=== PATIENT | male | born 1990 | race Caucasian/White ===

== ENCOUNTER 2022-03-19 17:16 | Emergency (ER) | payer SELFPAY ==
--- OUTSIDE RECORDS SUMMARY | 2022-03-19 17:20 | XMS REPORT | Continuity of Care Document ---
:1990 Author Organization [facility] t Address [address] [place] [address] Care Team Providers Name Role Phone Asked, No Pcp Primary Care Physician Unavailable AMBER DAVISON Attending Clinician Unavailable Yu Collazo Attending Clinician YU SALAS Attending Clinician Unavailable MAC ALFONSO Attending Clinician Unavailable Problems Condition Condition Condition Status Onset Resolution Last Treating Co mments Source Name Details Category Date Date Treatment Clinician Date No known No known Disease Unive rs active active ity of problems problems [facility] Allergies, Adverse Reactions, Alerts Allergy Allergy Status Severity Reaction(s) Onset Inactive Treating Comm ents Source Name Type Date Date Clinician NO KNOWN Drug Active Univers ALLERGIE Class ity of [facility] Family History Family Member Diagnosis Comments Start Date Stop Date Source Family member [facility] Social History Social Habit Start Date Stop Date Quantity Comments Source Exposure to Not sure University of SARS-CoV-2 [facility] (event) Branch History of Smokes tobacco [facility] tobacco use daily Alcohol intake 2020-12-10 2020-12-10 Current drinker [facility] 00:00:00 00:00:00 of alcohol (finding) Tobacco use and 2019-07-24 2019-07-24 Smokeless tobacco [facility] exposure 00:00:00 00:00:00 non-user Sex Ass[birth year] At [birth year] [facility] 00:00:00 00:00:00 Smoking Status Start Date Stop Date Source Unknown if ever smoked [facility] Branch Smokes tobacco daily 2019-07-24 00:00:00 [facility] Medications Ordered Filled Start Stop Current Ordering Indication Dosage Frequency Signature Comments Components Source Medication Medication Date Date Medication? Clinician (SIG) Name Name No known No No known Metho di medications 5-[address] 10:40: s [facility] l KCL 2019-07- No 40meq 40 mEq, Univers (KLOR-CON 08-31 Oral, ity of M20) tablet 03:00[place] 02[place]07 [place] 00 :00 dose, Fri Medical 06/29/20 Branch at 2100, JOSEFINA clindamycin 2019-07- No 600mg 600 mg, IV Univers (CLEOCIN) 08-31 Piggyback, ity of injection 02:15: 01:50 [place] 600 mg [place] :00 dose, Fri Medical 06/29/20 Branch at 2014, JOSEFINA
Re ason for Anti-Infec tive: Documented Infection< br>Documen josy Infection Site: HEENT
D uration of Therapy: 10 days
Restricte d use approved by: ADC PROVIDER acetaminoph 2019-07- No 650mg 650 mg, U nivers en 08-31 Oral, ity of (TYLENOL) 02:15: 01:25 [place] tablet 650 00 :00 dose, Fri Medi braulio mg 06/29/20 Branch at 2014, JOSEFINA HYDROcodone 2019-07- No 1{tbl} 1 tablet, Univers -acetaminop 08-31 Oral, ity of hen (NORCO) 02:15: 01:27 [place] 10-325 mg 00 :00 dose, Fri Medic al tablet 1 06/29/20 Branch tablet at 2014, Routine NaCl 0.9% 2019-07 2020- No 1000mL at 999 Uni vers (NS) bolus 08-31 mL/hr, ity of infusion 02:15: 03:02 1,000 mL, James as 1,000 mL 00 :00 IV Medical Infusion, Branch ONCE, 1 dose, 06/29/20 at 2015, STAT traMADoL 50 2019-07 Yes [id number] 50mg Take 1 Univ ers mg tablet 2-18 tablet by ity o f 00:00: mouth [place] 00 every 6 Medical (six) Branch hours as needed for Pain (scale 4-6). Indication s: acute pain clindamycin 2019-07 2020- No [id number] 450mg Take 3 Univers 150 mg 2-18 - capsules ity of capsule 00:00: 05:59 by mouth 3 [place] as 00 :00 (three) Medical times Branch daily for 10 days. Vital Signs Vital Name Observation Time Observation Value Comments Source Systolic blood 2020-06-30 02:30:00 156 [facility]Hg[facility] 2020-06-30 02:30:00 85 mm[facility]Hg[facility] Heart rate 2020-06-30 02:30:00 115 /min [facility] Body temperature 2020-06-30 02:30:00 37.5 Claudai [facility] Respiratory rate 2020-06-30 02:30:00 18 /min [facility] Oxygen saturation in 2020-06-30 02:30:00 99 /min [facility] Arterial blood by [facility] Pulse oximetry [place] Body height 2020-06-30 00:48:00 182.9 cm [facility] Body weight 2020-06-30 00:48:00 104.327 kg [facility] BMI 2020-06-30 00:48:00 31.19 kg/m2 [facility] Procedures Procedure Date / Time Performed Performing Clinician Sour e BASIC METABOLIC PANEL 2020-06-30 01:17:00 Yu Salas [facility] (NA, K, CL, CO2, [facility] GLUCOSE, BUN, CREATININE, CA) CBC WITH DIFF 2020-06-30 01:17:00 Yu Salas [facility] CONSENT/REFUSAL FOR 2020-06-30 00:43:20 [facility] AND Name [facility] TREATMENT NOTICE OF PRIVACY 2020-06-30 00:41:40 Doctor Unassigned, [facility] Plan of Care Planned Activity Planned Date Details Comments Source Future Scheduled 2022-03-12 HEPATITIS B VACCINES [facility] Test 01:09:39 (1 of 3 - 3-dose series) [code = HEPATITIS B VACCINES (1 of 3 - 3-dose series)] Future Scheduled 2022-03-12 COVID-19 VACCINE (#1) [facility] Test 01:09:39 [code = COVID-19 VACCINE (#1)] Future Scheduled 2022-03-12 Pneumococcal Vaccine: [facility] Test 01:09:39 Pediatrics (0 to 5 Years) and At-Risk Patients (6 to 64 Years) (1 - PCV) [code = Pneumococcal Vaccine: Pediatrics (0 to 5 Years) and At-Risk Patients (6 to 64 Years) (1 - PCV)] Future Scheduled 2022-03-12 Hepatitis C screening [facility] Test 01:09:39 (procedure) [code = 961081024] Future Scheduled 2022-03-12 INFLUENZA VACCINE [facility] Test 01:09:39 [code = INFLUENZA VACCINE] Encounters Start End Encounter Admission Attending Care Care Encounter Source Date/Time Date/Time Type Type Clinicians Facility Department ID 2020-12-10 2020-12-10 Emergency DAVISON, [place] [id number] [place] [address] 00:00:00 00:00:00 AMBER [address] 2020-06-29 2020-06-29 [id number] Univers 18:52:00 21:05:00 Yu Nicolas [place] [id number] [facility] [id number] [facility] [id number] [address] 2020-06-29 2020-06-29 Emergency [facility] [id number] Univers 18:52:00 18:52:00 YU keane [facility] 2019-07-24 2019-07-25 [facility] [place] [id number] [place] 00:00:00 00:00:00 MAC [address] Results Test Description Test Time Test Comments Results Result Comments Source BASIC METABOLIC PANEL (NA, K, CL, CO2, GLUCOSE, BUN, 2020-06 01:55:00 CREATININE, CA) Test Item Value Reference Range Interpretation Comme nts NA (test code = 7749498424) 136 mmol/L 135-145 K (test code = 6267934635) 3.0 mmol/L 3.5-5 L CL (test code = 9142892986) 100 mmol/L 98-108 CO2 TOTAL (test code = 1183347560) 26 mmol/L 23-31 AGAP (test code = 1839790379) 2-16 BUN (test code = 6588327637) 11 mg/dL 7-23 GLUCOSE (test code = 3448953666) 184 mg/dL 70-110 H CREATININE (test code = 0.73 mg/dL 0.6-1.25 2209395047) CALCIUM (test code = 5968580993) 9.4 mg/dL 8.6-10.6 eGFR Calculation (Non- mL/min/1.73m2 [place]) (test code = 2620603919) eGFR Calculation ( mL/min/1.73m2 [place]) (test code = 8550711081) LUIS E (test code = LUIS E) Association of Glomerular Filtration Rate (GFR) and Staging of Kidney Disease* + +-------- + ------+| GFR (mL/min/1.73 m2) ?| With Kidney Damage ?| ?Without Kidney Damage+ +-- + +| ?>90 ?| ?Stage one ?| ? Normal ?+ +------- + -------+| ?60-89 ?| ?Stage two ?| ? Decreased GFR ? + +-------- + ------+| ?30-59 ?| ?Stage three ?| ? Stage three ? + +-------- + ------+| ?15-29 ?| ?Stage four ? | ? Stage four ?+ +------- + -------+| ?<15 (or dialysis) ? ?| ?Stage five ? | ? Stage five ?+ +------- + -------+ *Each stage assumes the associated GFR level has been in effect for at least three months. ?Stages 1 to 5, with or without kidney disease, indicate chronic kidney disease. Notes: Determination of stages one and two (with eGFR >59mL/min/1.73 m2) requires estimation of kidney damage for at least three months as defined by structural or functional abnormalities of the kidney, manifested by either:Pathological abnormalities or Markers of kidney damage (including abnormalities in the composition of the blood or urine or abnormalities in imaging tests). Lab Interpretation (test code = Abnormal 37724-3) [facility] WITH [id number] 01:45:00 Test Item Value Reference Range Interpretation Comments WBC (test code = See_Comment H [Automated 6690-2) message] The system which generated this result transmit josy reference range : 4.20 - 10.70 10*3/?L. The reference range was not used to interpret this result as normal/abnormal . RBC (test code = See_Comment L [Automated 789-8) message] The system which generated this result transmit josy reference range : 4.26 - 5.52 10*6/?L. The reference range was not used to interpret this result as normal/abnormal . HGB (test code = 13.5 g/dL 12.2-16.4 718-7) HCT (test code = 36.9 % 38.4-49.3 L 4544-3) MCV (test code = 87.2 fL 81.7-95.6 787-2) MCH (test code = 31.9 pg 26.1-32.7 785-6) MCHC (test code = 36.6 g/dL 31.2-35 H 786-4) RDW-SD (test code = 38.4 fL 38.5-51.6 L 34726-0) RDW-CV (test code = 12.0 % 12.1-15.4 L 788-0) PLT (test code = See_Comment [Automated 777-3) message] The system which generated this result transmit josy reference range : 150 - 328 10*3/ ?L. The reference range was not u sed to interpret th is result as normal/abnormal . MPV (test code = 10.5 fL 9.8-13 68302-2) NRBC/100 WBC (test See_Comment [Automat ed code = 6025166611) message] The system which generated this result transmit josy reference range : 0.0 - 10.0 /100 WBCs. The reference range was not used to interpret this result as normal/abnormal . NRBC x10^3 (test code <0.01 See_Comment [Auto mated = 9009746466) message] The system which generated this result transmit josy reference range : 10*3/?L. The reference range was not used to interpret this result as normal/abnormal . GRAN MAT (NEUT) % 82.8 % (test code = 770-8) IMM GRAN % (test code 0.40 % = 6485421873) LYMPH % (test code = 7.8 % 736-9) MONO % (test code = 8.9 % 5905-5) EOS % (test code = 0.0 % 713-8) BASO % (test code = 0.1 % 706-2) GRAN MAT x10^3(ANC) 11.09 10*3/uL 1.99-6.95 H (test code = 4149971738) IMM GRAN x10^3 (test 0.05 10*3/uL 0-0.06 code = 0590595936) LYMPH x10^3 (test code 1.04 10*3/uL 1.09-3.23 L = 731-0) MONO x10^3 (test code 1.19 10*3/uL 0.36-1.02 H = 742-7) EOS x10^3 (test code = <0.03 0.06-0.53 L 711-2) BASO x10^3 (test code <0.03 0.01-0.09 = 704-7) Lab Interpretation Abnormal (test code = 43403-4) [facility]"
--- NOTE | 2022-03-19 18:24 | EDPHYS ---
Physician Documentation [facility] Name: Kan Brown Age: 31 yrs Sex: Male : 1990 Arrival Date: 03/19/2022 Time: 17:17 Bed Waiting Private MD: ED Physician Rudi Medina HPI: 03/19 18:29 This 31 yrs old Male presents to ER via Ambulatory with complaints of Right side facial pm1 pain. 18:29 Onset: The symptoms/episode began/occurred 3 day(s) ago. pm1 18:29 The patient presents with pain. The problem is located in the right jaw. Duration: The pm1 symptoms are continuous. Modifying factors: The symptoms are alleviated by nothing, the symptoms are aggravated by nothing. Associated signs and symptoms: Pertinent positives: Ear pain, headache, Pertinent negatives: fever, inability to eat, swelling, vomiting. Severity of symptoms: in the emergency department the symptoms are unchanged. The patient has not experienced similar symptoms in the past. The patient has not recently seen a physician. Historical: - Allergies: 18:24 No Known Allergies; kb3 - Home Meds: 18:24 None [Active]; kb3 - PMHx: 18:24 None; kb3 - PSHx: 18:24 None; kb3 - Immunization history:: Adult Immunizations up to date, Client reports having NOT received the Covid vaccine. Last tetanus immunization: unknown. - Social history:: Smoking status: Patient reports the use of cigarette tobacco products, smokes one pack cigarettes per day. ROS: 18:29 Constitutional: Negative for fever, chills, and weight loss. pm1 18:29 Cardiovascular: Negative for chest pain, palpitations, and edema, Respiratory: Negative for shortness of breath, cough, wheezing, and pleuritic chest pain, Abdomen/GI: Negative for abdominal pain, nausea, vomiting, diarrhea, and constipation, MS/Extremity: Negative for injury and deformity, Skin: Negative for injury, rash, and discoloration. 18:29 ENT: Positive for dental pain, ear pain, Negative for drainage from ear(s). 18:29 Neuro: Positive for headache. 18:29 All other systems are negative. Exam: 18:29 Constitutional: This is a well developed, well nourished patient who is awake, alert, pm1 and in no acute distress. Head/Face: Normocephalic, atraumatic. 18:29 Skin: Warm, dry with normal turgor. Normal color with no rashes, no lesions, and no evidence of cellulitis. MS/ Extremity: Pulses equal, no cyanosis. Neurovascular intact. Full, normal range of motion. 18:29 Eyes: Exam is negative for acute changes, Periorbital structures: appear normal, Pupils: no acute changes, Extraocular movements: no acute changes, Conjunctiva: no acute changes, no injection. 18:29 ENT: External ear(s): are unremarkable, Ear canal(s): are normal, TM's: are normal, Mouth: Lips: normal, moist, Oral mucosa: normal, pink and intact, moist, Gums: normal with healthy appearance, Dental exam: dental caries, that is moderate, specifically in the upper right first molar (#3), lower right first molar (#30) and lower right second molar (#31), gum swelling, not appreciated. 18:29 Cardiovascular: Exam negative for acute changes, Rate: normal, Rhythm: regular, Pulses: no pulse deficits are appreciated. 18:29 Respiratory: Exam negative for acute changes, respiratory distress, shortness of breath. 18:29 Neuro: Exam negative for acute changes, Orientation: is normal, Mentation: is normal, Motor: is normal, moves all fours. Vital Signs: 18:21 BP 150 / 87; Pulse 70; Resp 20; Temp 98.8; Pulse Ox 100% ; Weight 107.5 kg; Height 6 kb3 ft. 0 in. (182.88 cm); Pain 10/10; 18:21 Body Mass Index 32.14 (107.50 kg, 182.88 cm) kb3 MDM: 18:22 Counseling: I had a detailed discussion with the patient and/or guardian regarding: the pm1 historical points, exam findings, and any diagnostic results supporting the discharge/admit diagnosis, the need for outpatient follow up, for definitive care, a dentist, to return to the emergency department if symptoms worsen or persist or if there are any questions or concerns that arise at home. 18:22 Data reviewed: vital signs. Data interpreted: Pulse oximetry: on room air is 100 %. pm1 Interpretation: normal. 18:23 Patient medically screened. pm1 18:25 ED course: [place] reviewed. pm1 Administered Medications: 18:29 Drug: [place] (HYDROcodone-acetaminophen) 10 mg-325 mg 1 tabs Route: PO; kb3 18:29 Follow up: Response: No adverse reaction; Medication administered at discharge. kb3 Disposition: 23:06 Co-signature as Attending Physician, Rudi Medina DO I agree with the assessment and ms3 plan of care. Disposition Summary: 03/19/22 18:23 Discharge Ordered Location: Home pm1 Problem: new pm1 Symptoms: have improved pm1 Condition: Stable pm1 Diagnosis - Dental caries, unspecified pm1 Followup: pm1 - With: Emergency Department - When: As needed - Reason: Worsening of condition Followup: pm1 - With: Private Physician - When: 2 - 3 days - Reason: Recheck today's complaints, Continuance of care, Re-evaluation by your physician Discharge Instructions: - Discharge Summary Sheet pm1 - Dental Caries, Adult pm1 - Dental Pain pm1 - Diet and Dental Disease pm1 Forms: - Medication Reconciliation Form pm1 - Thank You Letter pm1 - Antibiotic Education pm1 - Prescription Opioid Use pm1 Prescriptions: - Amoxicillin 500 mg Oral Capsule - take 1 capsule by ORAL route every 8 hours for 10 days; 30 tablet; Refills: 0, pm1 Product Selection Permitted - Tylenol-Codeine #3 300 mg-30 mg Oral - take 2 tablet by ORAL route every 6 hours As needed; 20 tablet; Refills: 0, pm1 Product Selection Permitted Signatures: Vivek Dia, FELIX MANAGER PRIMARY pm1 Rudi Medina DO DO ms3 Bren Powell, RN RN kb3
--- NOTE | 2022-03-19 18:31 | ER ---
Nurse's Notes [facility] Name: Kan Brown Age: 31 yrs Sex: Male : 1990 Arrival Date: 03/19/2022 Time: 17:17 Bed Waiting Private MD: Diagnosis: Dental caries, unspecified Presentation: 03/19 18:21 Chief complaint: Patient states: Pt reports right-sided face pain due to several rotten kb3 teeth. Coronavirus screen: Vaccine status: Patient reports being unvaccinated. Ebola Screen: Patient negative for fever greater than or equal to 101.5 degrees Fahrenheit, and additional compatible Ebola Virus Disease symptoms Patient denies exposure to infectious person. Patient denies travel to an Ebola-affected area in the 21 days before illness onset. No symptoms or risks identified at this time. Initial Sepsis Screen: Does the patient meet any 2 criteria? No. Patient's initial sepsis screen is negative. Does the patient have a suspected source of infection? No. Patient's initial sepsis screen is negative. Risk Assessment: Do you want to hurt yourself or someone else? Patient reports no desire to harm self or others. Onset of symptoms was March 16, 2022. 18:21 Method Of Arrival: Ambulatory kb3 18:21 Acuity: TIGRE 4 kb3 Triage Assessment: 18:24 General: Appears in no apparent distress. uncomfortable, Behavior is calm, cooperative. kb3 Pain: Complains of pain in right cheek, right ear and right jaw Pain does not radiate. Pain currently is 10 out of 10 on a pain scale. Quality of pain is described as aching, throbbing. Historical: - Allergies: 18:24 No Known Allergies; kb3 - Home Meds: 18:24 None [Active]; kb3 - PMHx: 18:24 None; kb3 - PSHx: 18:24 None; kb3 - Immunization history:: Adult Immunizations up to date, Client reports having NOT received the Covid vaccine. Last tetanus immunization: unknown. - Social history:: Smoking status: Patient reports the use of cigarette tobacco products, smokes one pack cigarettes per day. Screenin:25 Abuse screen: Denies threats or abuse. Denies injuries from another. Nutritional kb3 screening: No deficits noted. Tuberculosis screening: No symptoms or risk factors identified. Fall Risk None identified. Assessment: 18:25 General: see triage note. kb3 Vital Signs: 18:21 BP 150 / 87; Pulse 70; Resp 20; Temp 98.8; Pulse Ox 100% ; Weight 107.5 kg; Height 6 kb3 ft. 0 in. (182.88 cm); Pain 10/10; 18:21 Body Mass Index 32.14 (107.50 kg, 182.88 cm) kb3 ED Course: 17:17 Patient arrived in ED. mr 17:30 Vivek Dia NP is PHCP. pm1 17:30 Rudi Medina DO is Attending Physician. pm1 18:24 Triage completed. kb3 18:24 Arm band placed on right wrist. kb3 18:25 Patient has correct armband on for positive identification. kb3 18:25 No provider procedures requiring assistance completed. Patient did not have IV access kb3 during this emergency room visit. Administered Medications: 18:29 Drug: [place] (HYDROcodone-acetaminophen) 10 mg-325 mg 1 tabs Route: PO; kb3 18:29 Follow up: Response: No adverse reaction; Medication administered at discharge. kb3 Medication: 18:25 VIS not applicable for this client. kb3 Outcome: 18:23 Discharge ordered by MD. pm1 18:30 Discharged to home ambulatory. kb3 18:30 Condition: good 18:30 Discharge instructions given to patient, Instructed on discharge instructions, follow up and referral plans. medication usage, Demonstrated understanding of instructions, follow-up care, medications, Prescriptions given X 2. 18:30 Patient left the ED. kb3 Signatures: Leanna Lam mr Vivek Dia NP HOME HEALTH AIDE CAREGIVER pm1 Bren Powell, RN RN kb3
[2022-03-19] MEDS ORDERED: HYDROCODONE/APAP 10/325 TAB ONE (18:37)
[2022-03-19 18:58] VITALS: BP 150/87; TEMP 98.8; O2SAT 100
== END 2022-03-19 18:30 | disposition home or self-care (01) ==
LOC: ER 17:16
DX: K02.9 Dental caries, unspecified (principal); F17.210 Nicotine dependence, cigarettes, uncomplicated
CPT/HCPCS: 99283

== ENCOUNTER 2022-04-05 06:42 | Emergency (ER) | payer SELFPAY ==
--- OUTSIDE RECORDS SUMMARY | 2022-04-05 06:45 | XMS REPORT | Continuity of Care Document ---
:1990 Author Organization [facility] t Address [address] [place] [address] Care Team Providers Name Role Phone Asked, [...] rs active active ity of problems problems [facility] Allergies, Adverse Reactions, Alerts Allergy Allergy Status Severity Reaction(s) Onset Inactive Treating Comm ents Source Name Type Date Date Clinician NO KNOWN Drug Active Univers ALLERGIE Class ity of S [facility] Family History Family Member Diagnosis Comments Start Date Stop Date Source Family member [facility] Social History Social Habit Start Date Stop Date Quantity Comments Source History of Cigarette Smoker [facility] tobacco use Exposure to Not sure [facility]-CoV-2 [facility] [place] Alcohol intake 2020-12-10 2020-12-10 Current drinker [facility] 00:00:00 00:00:00 of alcohol (finding) Tobacco use and 2019-07-24 2019-07-24 Smokeless tobacco [facility] exposure 00:00:00 00:00:00 non-user Sex Assigned At [birth year] [facility] 00:00:00 00:00:00 Smoking Status Start Date Stop Date Source Unknown if ever smoked [facility] Smokes tobacco daily 2019-07-24 00:00:00 [facility] Medications Ordered Filled Start Stop Current Ordering Indication Dosage Frequency Signature Comments Components Source Medication Medication Date Date Medication? Clinician (SIG) Name Name No known No No known Metho di medications - medication [facility] 10:40[facility] No known No No known Metho di medications 5- medication [facility] 10:40: [facility] l KCL 2019-07- No 40meq 40 mEq, Univers (KLOR-CON 08-31 Oral, ity of M20) tablet 03:00[place] 02[place]07 [place] 00 :00 dose, [facility] 06/29/20 Branch at 2099, JOSEFINA clindamycin 2019-07- No 600mg 600 mg, IV Univers (CLEOCIN) 08-31 Piggyback, ity of injection 02:15: 01:50 [place]CE[place] 600 mg [place] :00 dose, [facility] 06/29/20 Branch at 2014, JOSEFINA
Re [...] Branch tablet at 2014, Routine NaCl 0.9% 2019-07- No 1000mL at 999 Uni vers (NS) bolus 08-31 mL/hr, ity of infusion 02:15: 03:02 1,000 mL, James as 1,000 mL 00 :00 IV Medical Infusion, Branch ONCE, 1 dose, 06/29/20 at 2015, STAT traMADoL 50 2019-07 Yes [id number] 50mg Take 1 [facility] mg tablet 2-18 tablet by ity o f 00:00: mouth [place] 00 every 6 Medical (six) Branch hours as needed for Pain (scale 4-6). Indication s: acute pain clindamycin 2019-07 2020- No [id number] 450mg Take 3 Univers 150 mg 2-18 12- capsules ity of capsule 00:00: 05:59 by mouth 3 James as 00 :00 (three) Medical times [place] daily for 10 days. Vital Signs Vital Name Observation Time Observation Value Comments Source Systolic blood 2020-06-30 02:30:00 156 mm[Hg] [facility] Diastolic blood 2020-06-30 02:30:00 85 mm[Hg] [facility] Heart rate 2020-06-30 02:30:00 115 /min [facility] Body temperature 2020-06-30 02:30:00 37.5 [facility] Respiratory rate 2020-06-30 02:30:00 18 /min [facility] Oxygen saturation in 2020-06-30 02:30:00 99 /min [facility] Arterial blood by [facility] Pulse oximetry [place] Body height 2020-06-30 00:48:00 182.9 cm [facility] Body weight 2020-06-30 00:48:00 104.327 kg [facility] BMI 2020-06-30 00:48:00 31.19 kg/m2 [facility] Procedures Procedure Date / Time Performed Performing Clinician Sour e BASIC METABOLIC PANEL 2020-06-30 01:17:00 uY Salas [facility] (NA, K, CL, CO2, Medical Branch GLUCOSE, BUN, CREATININE, CA) CBC WITH DIFF 2020-06-30 01:17:00 Yu Salas [place] o f [facility] CONSENT/REFUSAL FOR 2020-06-30 00:43:20 Doctor Unassigned, [facility] AND Name Medical [place] TREATMENT NOTICE OF PRIVACY 2020-06-30 00:41:40 Doctor Unassigned, No Univ [facility] PRACTICES Name [facility] Plan of Care Planned Activity Planned Date Details Comments Source Future Scheduled 2022-03-12 HEPATITIS B VACCINES Met [facility] Test 01:09:39 (1 of 3 - 3-dose series) [code = HEPATITIS B VACCINES (1 of 3 - 3-dose series)] Future Scheduled 2022-03-12 COVID-19 VACCINE (#1) [facility] Test 01:09:39 [code = COVID-19 VACCINE (#1)] Future Scheduled 2022-03-12 Pneumococcal Vaccine: [facility] Test 01:09:39 Pediatrics (0 to 5 Years) and At-Risk Patients (6 to 64 Years) (1 - PCV) [code = Pneumococcal Vaccine: Pediatrics (0 to 5 Years) and At-Risk Patients (6 to 64 Years) (1 - PCV)] Future Scheduled 2022-03-12 Hepatitis C screening [facility] Test 01:09:39 (procedure) [code = 360554435] Future Scheduled 2022-03-12 INFLUENZA VACCINE Method [facility] Test 01:09:39 [code = INFLUENZA VACCINE] Future Scheduled 2022-03-12 HEPATITIS B VACCINES Met [facility] Test 01:09:39 (1 of 3 - 3-dose series) [code = HEPATITIS B VACCINES (1 of 3 - 3-dose series)] Future Scheduled 2022-03-12 COVID-19 VACCINE (#1) [facility] Test 01:09:39 [code = COVID-19 VACCINE (#1)] Future Scheduled 2022-03-12 Pneumococcal Vaccine: [facility] Test 01:09:39 Pediatrics (0 to 5 Years) and At-Risk Patients (6 to 64 Years) (1 - PCV) [code = Pneumococcal Vaccine: Pediatrics (0 to 5 Years) and At-Risk Patients (6 to 64 Years) (1 - PCV)] Future Scheduled 2022-03-12 Hepatitis C screening [facility] Test 01:09:39 (procedure) [code = 844412087] Future Scheduled 2022-03-12 INFLUENZA VACCINE Method [facility] Test 01:09:39 [code = INFLUENZA VACCINE] Encounters Start End Encounter Admission Attending Care Care Encounter Source Date/Time Date/Time Type Type Clinicians Facility Department ID 2020-12-10 2020-12-10 Emergency [facility] [id number] [place] 00:00:00 00:00:00 AMBER [facility] 2020-06-29 2020-06-29 [facility] [id number] Univers 18:52:00 21:05:00 Yu Nicolas [place] [id number] i ty [place] [id number] [facility] [id number] [place] [id number] Branch 2020-06-29 2020-06-29 Emergency [facility] ERT [id number] [facility] 18:52:00 18:52:00 YU keane [facility] 2019-07-24 2019-07-25 Emergency NATY, [facility] [id number] [place] 00:00:00 00:00:00 MAC Bhatia Method i st Results Test Description Test Time Test Comments Results Result Comments Source BASIC METABOLIC PANEL (NA, K, CL, CO2, GLUCOSE, BUN, 2020-06 01:55:00 CREATININE, CA) Test Item Value Reference Range Interpretation Comme nts NA (test code = 0915702893) 136 mmol/L 135-145 K (test code = 1244923340) 3.0 mmol/L 3.5-5 L CL (test code = 8702539882) 100 mmol/L 98-108 CO2 TOTAL (test code = 9238178303) 26 mmol/L 23-31 AGAP (test code = 7639204111) 2-16 BUN (test code = 5166474539) 11 mg/dL 7-23 GLUCOSE (test code = 9956635301) 184 mg/dL 70-110 H CREATININE (test code = 0.73 mg/dL 0.6-1.25 3128187685) CALCIUM (test code = 3704955668) 9.4 mg/dL 8.6-10.6 eGFR Calculation (Non- mL/min/1.73m2 Swedish) (test code = 7262634936) eGFR Calculation ( mL/min/1.73m2 Swedish) (test code = 1468984847) LUIS E (test code = LUIS E) [...] tests). Lab Interpretation (test code = Abnormal 35184-0) [facility] WITH [id number] 01:45:00 Test Item Value Reference Range Interpretation Comments WBC (test code = See_Comment H [Automated 3846-2) message] The system which generated this result transmit josy reference range : 4.20 - 10.70 10*3/?L. The reference range was not used to interpret this result as normal/abnormal . RBC (test code = See_Comment L [Automated 019-8) message] The system which generated this result [...] (test code = 38.4 fL 38.5-51.6 L 74238-7) RDW-CV (test code = 12.0 % 12.1-15.4 L 788-0) PLT (test code = See_Comment [Automated 777-3) message] The system which generated this result transmit josy reference range : 150 - 328 10*3/ ?L. The reference range was not u sed to interpret th is result as normal/abnormal . MPV (test code = 10.5 fL 9.8-13 62841-4) NRBC/100 WBC (test See_Comment [Automat ed code = 3290249957) message] The system which generated this result transmit josy reference range : 0.0 - 10.0 /100 WBCs. The reference range was not used to interpret this result as normal/abnormal . NRBC x10^3 (test code <0.01 See_Comment [Auto mated = 8074250294) message] The system which generated this result transmit josy reference range : 10*3/?L. The reference range was not used to interpret this result as normal/abnormal . GRAN MAT (NEUT) % 82.8 % (test code = 770-8) IMM GRAN % (test code 0.40 % = 5421473895) LYMPH % (test code = 7.8 % 736-9) MONO % (test code = 8.9 % 5905-5) EOS % (test code = 0.0 % 713-8) BASO % (test code = 0.1 % 706-2) GRAN MAT x10^3(ANC) 11.09 10*3/uL 1.99-6.95 H (test code = 7786558943) IMM GRAN x10^3 (test 0.05 10*3/uL 0-0.06 code = 5564479116) LYMPH x10^3 (test code 1.04 10*3/uL 1.09-3.23 L = 731-0) MONO x10^3 (test code 1.19 10*3/uL 0.36-1.02 H = 742-7) EOS x10^3 (test code = <0.03 0.06-0.53 L 711-2) BASO x10^3 (test code <0.03 0.01-0.09 = 704-7) Lab Interpretation Abnormal (test code = 89444-4) [facility]"
[2022-04-05] MEDS ORDERED: NA CHLORIDE 0.9% 1,000 ML ONE (08:00)
[2022-04-05 08:12] LABS: Magnesium 2.5 mg/dL (1.8-2.4); Potassium 3.8 mmol/L (3.5-5.1)
--- NOTE | 2022-04-05 08:21 | EDPHYS ---
Physician Documentation [facility] Name: Kan Brown Age: 32 yrs Sex: Male : 1990 Arrival Date: 04/05/2022 Time: 06:46 Bed Treatment Private MD: ED Physician Kel Howe HPI: 04/05 08:03 This 32 yrs old Male presents to ER via Ambulatory with complaints of Dehydration. 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 Feels better but wanted to make sure everything was ok so came in for evaluation.. Onset: The symptoms/episode began/occurred yesterday. Severity of symptoms: At their worst the symptoms were moderate in the emergency department the symptoms have improved. The patient has experienced a previous episode. The patient has not recently seen a physician. Historical: - Allergies: 07:49 No Known Allergies; iw - Home Meds: 07:49 None [Active]; iw - PMHx: 07:49 None; iw - Immunization history:: Client reports receiving the 2nd dose of the Covid vaccine. - Social history:: Smoking status: Patient reports the use of cigarette tobacco products. - Family history:: not pertinent. - Hospitalizations: : No recent hospitalization is reported. ROS: 08:15 Constitutional: Negative for fever, chills, and weight loss, Eyes: Negative for injury, rn pain, redness, and discharge, Neck: Negative for injury, pain, and swelling, Cardiovascular: Negative for chest pain, palpitations, and edema, Respiratory: Negative for shortness of breath, cough, wheezing, and pleuritic chest pain, Abdomen/GI: Negative for abdominal pain, nausea, vomiting, diarrhea, and constipation, Back: Negative for injury and pain, MS/Extremity: Negative for injury and deformity, Skin: Negative for injury, rash, and discoloration, Neuro: Negative for headache, weakness, numbness, tingling, and seizure. Exam: 08:15 Constitutional: This is a well developed, well nourished patient who is awake, alert, rn and in no acute distress. Ambulatory from waiting room to triage without assistance. Head/Face: Normocephalic, atraumatic. Eyes: Periorbital areas with no swelling, redness, or edema. ENT: MMM Cardiovascular: Regular rate and rhythm. No pulse deficits. Respiratory: No increased work of breathing, no retractions or nasal flaring. Abdomen/GI: Soft, non-tender MS/ Extremity: Pulses equal, no cyanosis. Neuro: Awake and alert, GCS 15, oriented to person, place, time, and situation. Cranial nerves II-XII grossly intact. Motor strength 5/5 in all extremities. Sensory grossly intact. Cerebellar exam normal. Normal gait. Vital Signs: 07:50 BP 150 / 88; Pulse 67; Resp 16; Temp 97.7; Weight 107.5 kg; Height 6 ft. 0 in. (182.88 iw cm); 07:50 Body Mass Index 32.14 (107.50 kg, 182.88 cm) iw MDM: 07:03 Patient medically screened. rn 08:15 Differential Diagnosis dehydration, electrolyte problem. Data reviewed: vital signs, rn nurses notes, lab test result(s), and as a result, I will discharge patient. Counseling: I had a detailed discussion with the patient and/or guardian regarding: the historical points, exam findings, and any diagnostic results supporting the discharge/admit diagnosis, lab results, the need for outpatient follow up, to return to the emergency department if symptoms worsen or persist or if there are any questions or concerns that arise at home. Response to treatment: the patient's symptoms have mildly improved after treatment, and as a result, I will discharge patient. Special discussion: I discussed with the patient/guardian in detail that at this point there is no indication for admission to the hospital. It is understood, however, that if the symptoms persist or worsen the patient needs to return immediately for re-evaluation. 04/05 07:36 Order name: Basic Metabolic Panel; Complete Time: 08:15 rn 04/05 07:36 Order name: Magnesium; Complete Time: 08:15 rn 04/05 07:36 Order name: IV Start; Complete Time: 07:55 rn Administered Medications: 07:59 Drug: NS 0.9% 1000 ml Route: IV; Rate: 1000 ml; Site: left hand; iw Disposition Summary: 04/05/22 08:20 Discharge Ordered Location: Home rn Problem: new rn Symptoms: have improved rn Condition: Stable rn Diagnosis - Dehydration rn - Muscle spasm rn Followup: rn - With: Private Physician - When: As needed - Reason: Recheck today's complaints, Re-evaluation by your physician Discharge Instructions: - Discharge Summary Sheet rn - Dehydration, Adult rn Forms: - Medication Reconciliation Form rn - Thank You Letter rn - Antibiotic furniture installer - Prescription Opioid Use rn Signatures: Dispatcher [employer] Chante Marie RN RN iw Nieto, Roman, MD MD rn
--- NOTE | 2022-04-05 08:21 | ER ---
Nurse's Notes [facility] Name: Kan Brown Age: 32 yrs Sex: Male : 1990 Arrival Date: 04/05/2022 Time: 06:46 Bed Treatment Private MD: Diagnosis: Dehydration;Muscle spasm Presentation: 04/05 07:48 Chief complaint: Patient states: feels dehydrated , has cramping in legs and arms since iw yesterday , was working in the heat yesterday. Coronavirus screen: At this time, the client does not indicate any symptoms associated with coronavirus-19. Ebola Screen: Patient negative for fever greater than or equal to 101.5 degrees Fahrenheit, and additional compatible Ebola Virus Disease symptoms Patient denies exposure to infectious person. Patient denies travel to an Ebola-affected area in the 21 days before illness onset. No symptoms or risks identified at this time. Initial Sepsis Screen: Does the patient meet any 2 criteria? No. Patient's initial sepsis screen is negative. Does the patient have a suspected source of infection? No. Patient's initial sepsis screen is negative. Risk Assessment: Do you want to hurt yourself or someone else? Patient reports no desire to harm self or others. Onset of symptoms was April 04, 2022. 07:48 Method Of Arrival: Ambulatory iw 07:48 Acuity: TIGRE 3 iw Historical: - Allergies: 07:49 No Known Allergies; iw - Home Meds: 07:49 None [Active]; iw - PMHx: 07:49 None; iw - Immunization history:: Client reports receiving the 2nd dose of the Covid vaccine. - Social history:: Smoking status: Patient reports the use of cigarette tobacco products. - Family history:: not pertinent. - Hospitalizations: : No recent hospitalization is reported. Screenin:53 Abuse screen: Denies threats or abuse. Denies injuries from another. Nutritional iw screening: No deficits noted. Tuberculosis screening: No symptoms or risk factors identified. Fall Risk None identified. Assessment: 08:53 General: Appears in no apparent distress. Behavior is calm, cooperative. Pain: iw Complains of pain in right arm, left arm, right leg and left leg. Neuro: Level of Consciousness is awake, alert, obeys commands. Vital Signs: 07:50 BP 150 / 88; Pulse 67; Resp 16; Temp 97.7; Weight 107.5 kg; Height 6 ft. 0 in. (182.88 iw cm); 07:50 Body Mass Index 32.14 (107.50 kg, 182.88 cm) iw ED Course: 06:46 Patient arrived in ED. ja2 07:03 Kel Howe MD is Attending Physician. rn 07:47 Chante Mclean RN is Primary Nurse. iw 07:49 Triage completed. iw 07:49 Arm band placed on. iw 07:52 Initial lab(s) drawn, by me, sent to lab. Inserted saline lock: 20 gauge in left hand, 3 using aseptic technique. Blood collected. 08:54 Patient has correct armband on for positive identification. iw 08:54 No provider procedures requiring assistance completed. IV discontinued, intact, iw bleeding controlled, No redness/swelling at site. Pressure dressing applied. Administered Medications: 07:59 Drug: NS 0.9% 1000 ml Route: IV; Rate: 1000 ml; Site: left hand; iw Medication: 08:54 VIS not applicable for this client. iw Outcome: 08:20 Discharge ordered by . rn 08:54 Discharged to home ambulatory, with family. iw 08:54 Condition: good 08:54 Discharge instructions given to patient, Instructed on discharge instructions, follow up and referral plans. Demonstrated understanding of instructions, follow-up care. 08:54 Patient left the ED. iw Signatures: Chante Mclean, RN RN iw Kel Howe MD MD rn Herrera, Deanna 3 Dulce Ware Corrections: (The following items were deleted from the chart) 08:01 07:50 Resp 16bpm; Temp 97.7F; 107.5 kg; Height 6 ft. 0 in.; BMI: 32.1; iw iw
[2022-04-06 19:48] VITALS: BP 150/88; TEMP 97.7
== END 2022-04-05 08:54 | disposition home or self-care (01) ==
LOC: ER 06:42
DX: E86.0 Dehydration (principal); M62.838 Other muscle spasm; Z72.0 Tobacco use
CPT/HCPCS: 36415; 80048; 83735; 99283; J7030

== ENCOUNTER 2022-12-12 05:54 | Emergency (ER) | payer BC ==
--- OUTSIDE RECORDS SUMMARY | 2022-12-12 05:57 | XMS REPORT | Continuity of Care Document ---
:1990 Author Organization [facility] t Address [address] [place] [address] [place] [id number] Care Team Providers Name Role Phone Asked, [...] rs active active ity of problems problems [facility] Allergies, Adverse Reactions, Alerts Allergy Allergy Status Severity Reaction(s) Onset Inactive Treating Comm ents Source Name Type Date Date Clinician NO KNOWN Drug Active Univers ALLERGIE Class ity of S [facility] Family History Family Member Diagnosis Comments Start Date Stop Date Source Family member Gl[facility] Social History Social Habit Start Date Stop Date Quantity Comments Source History of tobacco Cigarette [facility]oker [facility] Exposure to Not sure [facility] SARS-CoV-2 (event) [facility] Alcohol intake 2020-12-10 2020-12-10 Current drinker [facility] 00:00:00 00:00:00 of alcohol Hospital (finding) History of Social 2020-12-10 2020-12-[address] function 00:00:00 00:00:00 Hospital Tobacco use and 2019-07-24 2019-07-24 Smokeless [facility]:00 tobacco non-user Hospital Sex Assigned At [birth year] [facility] Smoking Status Start Date Stop Date Source Unknown if ever smoked [facility] Smokes tobacco daily 2019-07-24 00:00:00 [facility] Medications Ordered Filled Start [...] :00 dose, Fri Medical 06/29/20 Branch at 2099, JOSEFINA clindamycin 2019-07- No 600mg 600 mg, IV Univers (CLEOCIN) 08-31 Piggyback, ity of injection 02:15: 01:50 [place] 600 [place] :00 dose, [facility] Medical 06/29/20 Branch at 2014, JOSEFINA
Re [...] IV Medical Infusion, Branch ONCE, 1 dose, Thu06/29/20 at 2015, STAT traMADoL 50 2019- Yes 4647 50mg Take 1 Univ ers mg tablet 2-18 tablet by ity o f 00:00: mouth [place] 00 every 6 Medical (six) Branch hours as needed for Pain (scale 4-6). Indication s: acute pain clindamycin 2019-07 2020- No [id number] 450mg Take 3 Univers 150 mg 2-18 - capsules ity of capsule 00:00: 05:59 by mouth 3 James as 00 :00 (three) Medical times Branch daily for 10 days. Vital Signs Vital Name Observation Time Observation Value Comments Source Systolic blood 2020-06-30 02:30:00 156 mm[Hg] [facility] Diastolic blood 2020-06-30 02:30:00 85 mm[Hg] [facility] Heart rate 2020-06-30 02:30:00 115 /min [facility] Body temperature 2020-06-30 02:30:00 37.5 Claudia [facility] Respiratory rate 2020-06-30 02:30:00 18 /min [facility] Oxygen saturation in 2020-06-30 02:30:00 99 /min [facility] Arterial blood by [facility] Pulse oximetry [place] Body height 2020-06-30 00:48:00 182.9 cm [facility] Body weight 2020-06-30 00:48:00 104.327 kg [facility] BMI 2020-06-30 00:48:00 31.19 kg/m2 [facility] Procedures Procedure Date / Time Performed Performing Clinician Sourc e BASIC METABOLIC PANEL 2020-06-30 01:17:[address] [facility] (NA, K, CL, CO2, Medical [place] GLUCOSE, BUN, CREATININE, CA) CBC WITH DIFF 2020-06-30 01:17:00 Yu Salas [place] o f [facility] CONSENT/REFUSAL FOR 2020-06-30 00:43:20 [facility] Name Medical Branch TREATMENT NOTICE OF PRIVACY 2020-06-30 00:41:40 Doctor Unassigned, No Univ [facility] PRACTICES Name Medical Branch Plan of Care Planned Activity Planned Date Details Comments Source Future Scheduled 2022-10-16 COVID-19 VACCINE (#1) [facility] Test 06:32:40 [code = COVID-19 VACCINE (#1)] Future Scheduled 2022-10-16 Pneumococcal Vaccine: [facility] Test 06:32:40 Pediatrics (0 to 5 Years) and At-Risk Patients (6 to 64 Years) (1 - PCV) [code = Pneumococcal Vaccine: Pediatrics (0 to 5 Years) and At-Risk Patients (6 to 64 Years) (1 - PCV)] Future Scheduled 2022-10-16 Hepatitis C screening [facility] Test 06:32:40 (procedure) [code = 770771862] Future Scheduled 2022-10-16 INFLUENZA VACCINE Method [facility] Test 06:32:40 [code = INFLUENZA VACCINE] Future Scheduled 2022-10-16 COVID-19 VACCINE (#1) [facility] Test 06:32:40 [code = COVID-19 VACCINE (#1)] Future Scheduled 2022-10-16 Pneumococcal Vaccine: [facility] Test 06:32:40 Pediatrics (0 to 5 Years) and At-Risk Patients (6 to 64 Years) (1 - PCV) [code = Pneumococcal Vaccine: Pediatrics (0 to 5 Years) and At-Risk Patients (6 to 64 Years) (1 - PCV)] Future Scheduled 2022-10-16 Hepatitis C screening [facility] Test 06:32:40 (procedure) [code = 679191412] Future Scheduled 2022-10-16 INFLUENZA VACCINE Method [facility] Hospital Test 06:32:40 [code = INFLUENZA VACCINE] Future Scheduled 2022-03-12 HEPATITIS B VACCINES Met [facility] Test 01:09:39 (1 of 3 - 3-dose series) [code = HEPATITIS B VACCINES (1 of 3 - 3-dose series)] Future Scheduled 2022-03-12 COVID-19 VACCINE (#1) [facility] Test 01:09:39 [code = COVID-19 VACCINE (#1)] Future Scheduled 2022-03-12 Pneumococcal Vaccine: [facility] Test 01:09:39 Pediatrics (0 to 5 Years) and At-Risk Patients (6 to 64 Years) (1 - PCV) [code = Pneumococcal Vaccine: Pediatrics (0 to 5 Years) and At-Risk Patients (6 to 64 Years) (1 - PCV)] Future Scheduled 2022-03-12 Hepatitis C screening [facility] Test 01:09:39 (procedure) [code = 113832619] Future Scheduled 2022-03-12 INFLUENZA VACCINE Method [facility] Test 01:09:39 [code = INFLUENZA VACCINE] Future Scheduled 2022-03-12 HEPATITIS B VACCINES Met [facility] Test 01:09:39 (1 of 3 - 3-dose series) [code = HEPATITIS B VACCINES (1 of 3 - 3-dose series)] Future Scheduled 2022-03-12 COVID-19 VACCINE (#1) [facility] Test 01:09:39 [code = COVID-19 VACCINE (#1)] Future Scheduled 2022-03-12 Pneumococcal Vaccine: [facility] Test 01:09:39 Pediatrics (0 to 5 Years) and At-Risk Patients (6 to 64 Years) (1 - PCV) [code = Pneumococcal Vaccine: Pediatrics (0 to 5 Years) and At-Risk Patients (6 to 64 Years) (1 - PCV)] Future Scheduled 2022-03-12 Hepatitis C screening [facility] Test 01:09:39 (procedure) [code = 098578248] Future Scheduled 2022-03-12 INFLUENZA VACCINE Method [facility] Test 01:09:39 [code = INFLUENZA VACCINE] Encounters Start End Encounter Admission Attending Care Care Encounter Source Date/Time Date/Time Type Type Clinicians Facility Department ID 2020-12-10 2020-12-10 Emergency [facility] [id number] [place] 00:00:00 00:00:00 AMBER [address] 2020-06-29 2020-06-29 Emergency HAYDEE Salas [id number] Univers 18:52:00 21:05:00 Yu Lorenzana [id number] i [place] [id number] [facility] [id number] [facility] 084 Branch 2020-06-29 2020-06-29 Emergency X HAYDEE SALAS ERT [id number] Univers 18:52:00 18:52:00 YU keane [facility] 2019-07-24 2019-07-25 Emergency NATY [facility] [id number] [place] 00:00:00 00:00:00 MAC Bhatia Method i [facility] Results Test Description Test Time Test Comments Results Result Comments Source BASIC METABOLIC PANEL (NA, K, CL, CO2, GLUCOSE, BUN, 2020-06 01:55:00 CREATININE, CA) Test Item Value Reference Range Interpretation Comme nts NA (test code = 8684571337) 136 mmol/L 135-145 K (test code = 1469888247) 3.0 mmol/L 3.5-5 L CL (test code = 3559703985) 100 mmol/L 98-108 CO2 TOTAL (test code = 8281567401) 26 mmol/L 23-31 AGAP (test code = 9086522558) 2-16 BUN (test code = 0018225079) 11 mg/dL 7-23 GLUCOSE (test code = 3110669481) 184 mg/dL 70-110 H CREATININE (test code = 0.73 mg/dL 0.6-1.25 8955325418) CALCIUM (test code = 5832067742) 9.4 mg/dL 8.6-10.6 eGFR Calculation (Non- mL/min/1.73m2 Vincentian) (test code = 6070357752) eGFR Calculation ( mL/min/1.73m2 Vincentian) (test code = 9990816355) LUIS E (test code = LUIS E) [...] tests). Lab Interpretation (test code = Abnormal 62841-6) [facility] WITH [id number] 01:45:00 Test Item Value Reference Range Interpretation Comments WBC (test code = See_Comment H [Automated 3090-2) message] The system which generated this result transmit josy reference range : 4.20 - 10.70 10*3/?L. The reference range was not used to interpret this result as normal/abnormal . RBC (test code = See_Comment L [Automated 979-8) message] The system which generated this result [...] (test code = 38.4 fL 38.5-51.6 L 26427-2) RDW-CV (test code = 12.0 % 12.1-15.4 L 788-0) PLT (test code = See_Comment [Automated 777-3) message] The system which generated this result transmit josy reference range : 150 - 328 10*3/ ?L. The reference range was not u sed to interpret th is result as normal/abnormal . MPV (test code = 10.5 fL 9.8-13 59827-6) NRBC/100 WBC (test See_Comment [Automat ed code = 7075231943) message] The system which generated this result transmit josy reference range : 0.0 - 10.0 /100 WBCs. The reference range was not used to interpret this result as normal/abnormal . NRBC x10^3 (test code <0.01 See_Comment [Auto mated = 5949897695) message] The system which generated this result transmit josy reference range : 10*3/?L. The reference range was not used to interpret this result as normal/abnormal . GRAN MAT (NEUT) % 82.8 % (test code = 770-8) IMM GRAN % (test code 0.40 % = 0754935173) LYMPH % (test code = 7.8 % 736-9) MONO % (test code = 8.9 % 5905-5) EOS % (test code = 0.0 % 713-8) BASO % (test code = 0.1 % 706-2) GRAN MAT x10^3(ANC) 11.09 10*3/uL 1.99-6.95 H (test code = 7480980759) IMM GRAN x10^3 (test 0.05 10*3/uL 0-0.06 code = 4963926604) LYMPH x10^3 (test code 1.04 10*3/uL 1.09-3.23 L = 731-0) MONO x10^3 (test code 1.19 10*3/uL 0.36-1.02 H = 742-7) EOS x10^3 (test code = <0.03 0.06-0.53 L 711-2) BASO x10^3 (test code <0.03 0.01-0.09 = 704-7) Lab Interpretation Abnormal (test code = 40580-2) [facility]"
[2022-12-12 06:24] LABS: Absolute Lymphocytes (CBC) 2.3 K/uL (0.7-4.9); Hematocrit 45.8 % (39.6-49.0); Lymphocytes % 26.6 % (15.3-44.8); MCV 90.3 fL (80-100); MPV 8.4 fL (7.6-11.3); RBC Red Blood Cell Count 5.07 M/uL (4.33-5.43)
[2022-12-12 06:27] LABS: Protime INR 0.98
[2022-12-12] MEDS ORDERED: ASPIRIN 81 MG CHEWABLE TABLET ONE (06:33)
[2022-12-12 06:50] LABS: Albumin 4.4 g/dL (3.4-5.0); Bilirubin Direct 0.1 mg/dL (0-0.2); Bilirubin Indirect, Calculated 0.6 mg/dL (0.2-0.8); Bilirubin Total 0.7 mg/dL (0.2-1.0); Magnesium 2.2 mg/dL (1.6-2.4); Potassium 4.1 mEq/L (3.5-5.1); Troponin High Sensitivity 3.3 pg/mL (<58.9)
[2022-12-12 07:33] LABS: Specific Gravity 1.023 (1.005-1.030); Urine Bilirubin NEGATIVE (Negative); Urine Blood Negative (Negative); Urine Clarity Clear (Clear); Urine Color Light-Yellow (Yellow); Urine Glucose NEGATIVE (Negative); Urine Protein NEGATIVE (Negative); Urine Urobilinogen Normal (Normal)
--- NOTE | 2022-12-12 07:36 | RAD REPORT ---
EXAM DESCRIPTION: CT - Chest For Pe Angio - 12/12/2022 7:15 am CLINICAL HISTORY: Chest pain COMPARISON: None. TECHNIQUE: Dynamically enhanced axial 3 mm thick images of the chest were obtained during administra tion of 100 mL Isovue 370 IV contrast. Coronal and oblique reconstruction images were generated and r eviewed. Exam utilizes a protocol for optimal evaluation of pulmonary arterial tree. Maximum intensity projections 3D imaging was utilized All CT scans are performed using dose optimization technique as appropriate and may include automated exposure control or mA/KV adjustment according to patient size. FINDINGS: A pulmonary embolus is not seen. A thoracic aortic aneurysm is not noted. A pleural effusion is not seen. A pericardial effusion is not seen. A lung consolidation is not present. 6 millimeter subpleural nodule right middle lobe. Several additional smaller lung nodules measuring between 2 and 3 millimeters IMPRESSION: Negative for a pulmonary embolism. 6 millimeter subpleural right lung nodule. Followup CT chest in 6 months recommended for re-evaluatio n
[2022-12-12 07:42] LABS: Barbiturates NEGATIVE (NEGATIVE); Benzodiazepines NEGATIVE (NEGATIVE); Cocaine NEGATIVE (NEGATIVE); METHAMPHETAM NEGATIVE (NEGATIVE); Methadone NEGATIVE (NEGATIVE); Opiates NEGATIVE (NEGATIVE); Phencyclidine NEGATIVE (NEGATIVE); THC Cannibis POSITIVE (NEGATIVE)
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
[2022-12-12] MEDS ORDERED: KETOROLAC 30 MG/ML INJ ONE (08:02)
[2022-12-12 08:24] VITALS: TEMP 98.4; O2SAT 100
[2022-12-12 08:30] VITALS: BP 155/76
--- NOTE | 2022-12-12 10:58 | RAD REPORT ---
EXAM DESCRIPTION: RAD - Chest Single View - 12/12/2022 6:25 am CLINICAL HISTORY: CHEST PAIN COMPARISON: None FINDINGS: The lungs are clear bilaterally. There is no focal infiltrate, pleural effusion or pneum othorax. The cardiomediastinal contours are unremarkable. There are no acute bony or soft tissue abno rmalities. IMPRESSION: No acute cardiopulmonary process. Electronically signed by: Jhonny Marin MD 12/12/2022 6:36 AM CDT Due to temporary technical issues with the PACS/Fluency reporting system, reports are being signed by the in house radiologist without review as a courtesy to ensure prompt reporting. The interpreting r adiologist is fully responsible for the content of the report.
--- NOTE | 2022-12-14 14:22 | EKG ---
Test Date: 2022-12-12 Test Time: 06:05:51 [employer] Research Aide: MARCIE MEASUREMENT RESULTS: Intervals: Rate: 66 PA: 154 QRSD: 104 QT: 402 QTc: 421 [place]: P: 56 PA: 154 QRS: 83 T: 70 INTERPRETIVE STATEMENTS: Normal sinus rhythm Normal ECG No previous ECG available for comparison Electronically Signed On 12-14-22 14:18:01 CDT by Delmer Durham
== END 2022-12-12 08:05 | disposition home or self-care (01) ==
LOC: ER 05:54
DX: R07.1 Chest pain on breathing (principal); R91.1 Solitary pulmonary nodule; Z72.0 Tobacco use; Z71.6 Tobacco abuse counseling
CPT/HCPCS: 93005; 85025; 80048; 36415; 83735; 85610; 80076; 81003; 84484; 83880; 80307; 71275; 71045; 96374; 99285; Q9967

== ENCOUNTER 2024-03-03 16:51 | Emergency (ER) | payer BC ==
[2024-03-03] MEDS ORDERED: ACETAMINOPHEN 500 MG TAB ONE (17:28)
[2024-03-03] MEDS ORDERED: DIPHENHYDRAMINE 50 MG/ML VIAL ONE (17:28)
[2024-03-03] MEDS ORDERED: KETOROLAC 30 MG/ML INJ ONE (17:28)
[2024-03-03] MEDS ORDERED: NA CHLORIDE 0.9% 1,000 ML ONE (17:29)
[2024-03-03 17:46] LABS: Absolute Lymphocytes (CBC) 0.5 K/uL (0.7-4.9); Absolute Neutrophil 3.7 K/uL (1.8-8.0); Basophils % 0.2 % (0-1.3); Eosinophils % 0.2 % (0-4.4); Hemoglobin 15.2 g/dL (13.6-17.9); MCH 31.7 pg (27.0-35.0); MCHC 34.5 g/dL (32.0-36.0); MCV 91.8 fL (80-100); MPV 9.1 fL (7.6-11.3); Monocytes % 19.3 % (3.3-12.3); Neutrophils % 70.3 % (41.7-73.7); Platelets 194 thou/uL (152-406); RBC Red Blood Cell Count 4.79 M/uL (4.33-5.43); Red Cell Distribution Width 12.7 % (12.1-15.2)
[2024-03-03 17:48] LABS: Blood Morphology Comment NOT SEEN (NOT SEEN); Platelet Estimate ADEQ; White Blood Cell Scan OK (OK)
[2024-03-03 17:56] LABS: Anion Gap 10.5 mEq/L (5.0-15.0); Potassium 3.5 mEq/L (3.5-5.1)
[2024-03-03 18:08] LABS: SARS-CoV-2 Antigen CONTROL BLUE LINE VIS/BG OK
[2024-03-03 18:09] LABS: SARS-CoV-2 Antigen Rapid Res Positive (Negative)
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
--- NOTE | 2024-03-03 18:57 | RAD REPORT ---
EXAM DESCRIPTION: RADChest Single View03/03/2024 5:43 pm CLINICAL HISTORY: COUGH COMPARISON: Chest Single View dated 12/12/2022 TECHNIQUE: Portable AP view of the chest. FINDINGS: The lungs are clear. No pneumothorax or effusion. The cardiomediastinal contours are unre markable. IMPRESSION: No acute cardiopulmonary process.
[2024-03-03 19:27] VITALS: TEMP 99.4
[2024-03-03 19:30] VITALS: BP 119/63; O2SAT 95
== END 2024-03-03 18:51 | disposition home or self-care (01) ==
LOC: ER 16:51
DX: U07.1 COVID-19 (principal); B97.21 SARS-associated coronavirus as the cause of diseases classified elsewhere; F17.210 Nicotine dependence, cigarettes, uncomplicated
CPT/HCPCS: 96361; 85025; 80048; 36415; 87804 ×2; 71045; 96375; 96374; 99285; 87811; J1200; J7030

== ENCOUNTER 2024-07-09 18:48 | Emergency (ER) | payer BC ==
[2024-07-09] MEDS ORDERED: KETOROLAC 30 MG/ML INJ ONE (19:39)
[2024-07-09] MEDS ORDERED: NA CHLORIDE 0.9% 1,000 ML ONE (19:40)
[2024-07-09 19:49] LABS: Absolute Basophils 0.1 K/uL (0-0.5); Absolute Eosinophils 0.1 K/uL (0-0.5); Absolute Lymphocytes (CBC) 3.2 K/uL (0.7-4.9); Absolute Monocytes 0.7 K/uL (0.1-1.3); Absolute Neutrophil 5.2 K/uL (1.8-8.0); Basophils % 0.6 % (0-1.3); Eosinophils % 1.2 % (0-4.4); Hematocrit 40.4 % (39.6-49.0); Hemoglobin 14.2 g/dL (13.6-17.9); Lymphocytes % 34.6 % (15.3-44.8); MCH 32.1 pg (27.0-35.0); MCV 91.7 fL (80-100); MPV 9.2 fL (7.6-11.3); Monocytes % 7.5 % (3.3-12.3); Neutrophils % 56.1 % (41.7-73.7); Platelets 210 thou/uL (152-406); RBC Red Blood Cell Count 4.41 M/uL (4.33-5.43); Red Cell Distribution Width 12.7 % (12.1-15.2)
[2024-07-09 19:55] LABS: PT Prothrombin Time 11.6 SECONDS (9.4-12.5); Protime INR 1.04
[2024-07-09 20:01] LABS: D-Dimer < 0.215 FEUug/mL (0-0.500)
[2024-07-09 20:09] LABS: ALT/SGPT 54 U/L (16-61); AST/SGOT 26 U/L (15-37); Albumin 3.9 g/dL (3.4-5.0); Albumin/Globulin Ratio 1.3 (1.1-1.8); Alkaline Phosphatase 85 U/L (45-117); Anion Gap 8.3 mEq/L (5.0-15.0); BUN Blood Urea Nitrogen 11 mg/dL (7-18); Bicarbonate 27 mEq/L (21-32); Bilirubin Total 0.4 mg/dL (0.2-1.0); Glomerular Filtration Rate 110 ml/min (=/>90); Glucose Level 102 mg/dL (74-106); Magnesium 2.1 mg/dL (1.6-2.4); NT PRO-BNP 22 pg/mL (<125); Potassium 3.3 mEq/L (3.5-5.1); Protein, Total 6.9 g/dL (6.4-8.2); Sodium Level 140 mEq/L (136-145)
[2024-07-09] MEDS ORDERED: NA CHLORIDE 0.9% 100 ML ONE (20:10)
[2024-07-09] MEDS ORDERED: METHYLPREDNISOLONE 125 MG INJ ONE (20:10)
[2024-07-09] MEDS ORDERED: METHOCARBAMOL 1,000 MG/10 ML VIAL ONE (20:10)
[2024-07-09 20:12] LABS: Bilirubin Direct < 0.2 mg/dL (0-0.2); Bilirubin Indirect, Calculated 0.2 mg/dL (0.2-0.8)
--- NOTE | 2024-07-09 20:24 | RAD REPORT ---
EXAM: Chest Single View HISTORY: right side chest pain COMPARISON: 03/03/2024 FINDINGS: LUNGS/PLEURA: The lungs are clear. No pleural effusions or pneumothorax. No pulmonary edema. MEDIASTINUM: The mediastinal silhouette is within normal limits. CARDIAC: Within normal limits. UPPER ABDOMEN: No significant abnormality. BONES: No acute fracture. LINES/TUBES/OTHER: N/A IMPRESSION: No evidence of acute cardiopulmonary disease.
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
[2024-07-09] MEDS ORDERED: TRAMADOL HCL 50 MG TAB ONE (23:43)
[2024-07-09] MEDS ORDERED: ACETAMINOPHEN 500 MG TAB ONE (23:43)
[2024-07-10 00:14] VITALS: TEMP 98.3
[2024-07-10 00:23] VITALS: BP 128/70; O2SAT 99
--- NOTE | 2024-07-11 11:12 | EKG ---
Test Date: 2024-07-09 Test Time: 19:04:01 Quality Assurance Clerk: HB MEASUREMENT RESULTS: Intervals: Rate: 74 FL: 152 QRSD: 102 QT: 392 QTc: 435 [place]: P: 44 FL: 152 QRS: 61 T: 39 INTERPRETIVE STATEMENTS: Normal sinus rhythm Normal ECG Compared to ECG 12/12/2022 06:05:51 No significant changes Electronically Signed On 07-11-24 11:09:43 ASSEMBLER GARMENT FORM by Cullen Sosa
== END 2024-07-09 23:57 | disposition home or self-care (01) ==
LOC: ER 18:48
DX: R07.89 Other chest pain (principal)
CPT/HCPCS: 96365; 96361; 93005; 85025; 80048; 36415; 83735; 85610; 85379; 80076; 84484 ×2; 83880; 71045; 96375; 99285; 96366; J2919; J2800; J7030